=== PATIENT | male | born 1960 | race Two or more races ===

== ENCOUNTER 2018-10-02 08:22 | Emergency (ER) | payer BC ==
[~2018-10-02] VITALS: Ht 180.3 cm; Wt 93.4 kg
[2018-10-02 08:44] VITALS: Ht 180.3 cm; Wt 93.4 kg
[2018-10-02 09:20] LABS: BASOPHIL % 0.5 % (0-2); PLATELET COUNT 239 x10^3mcL (130-400); RED CELL DISTRIBUTION WIDTH 13.7 % (11.5-14.5)
[2018-10-02 09:27] LABS: CALCIUM 9.2 mg/dL (8.5-10.1); CARBON DIOXIDE 27.6 mmol/L (21-32); CREATININE SERUM 1.4 mg/dL (0.7-1.3); POTASSIUM SERUM 4.4 mmol/L (3.5-5.1)
[2018-10-02 09:31] LABS: BILIRUBIN TOTAL 0.76 mg/dL (0.20-1.00); TOTAL PROTEIN, SERUM 7.5 g/dL (6.4-8.2)
[2018-10-02 10:40] VITALS: BP 138/87
[2018-10-02 10:59] LABS: microscopic required? YES; urine erythrocyte 3+ (NEGATIVE)
== END 2018-10-02 11:21 | disposition home or self-care (01) ==
LOC: ED 08:22
PROVIDERS: Emergency Medicine
DX: N13.2 Hydronephrosis with renal and ureteral calculous obstruction (principal); I10 Essential (primary) hypertension; E78.00 Pure hypercholesterolemia, unspecified; F17.200 Nicotine dependence, unspecified, uncomplicated; Z90.49 Acquired absence of other specified parts of digestive tract
CPT/HCPCS: 99406; J1885